=== PATIENT | male | born 1990 | race Two or more races ===

== ENCOUNTER 2019-12-16 02:21 | Emergency (ER) | payer SELFPAY ==
[~2019-12-16] VITALS: Ht 182.9 cm; Wt 100.2 kg
[2019-12-16 02:29] VITALS: Ht 182.9 cm; Wt 100.2 kg
[2019-12-16 03:35] VITALS: BP 123/89
== END 2019-12-16 03:35 | disposition home or self-care (01) ==
LOC: ED 02:21
DX: R07.89 Other chest pain (principal); R42 Dizziness and giddiness; F17.210 Nicotine dependence, cigarettes, uncomplicated; E78.00 Pure hypercholesterolemia, unspecified
CPT/HCPCS: Q0092